=== PATIENT | female | born 1975 | race Caucasian/White ===

== ENCOUNTER → 2016-07-26 | Outpatient (CLI) | payer OTHER | LOC: KOH-I 12:27 | DX: M84.475A Pathological fracture, left foot, initial encounter for fracture (principal) | CPT/HCPCS: 73718 ==

== ENCOUNTER → 2016-08-09 | Outpatient (CLI) | payer OTHER | LOC: HEART CORB 07-26 14:00 | DX: R07.9 Chest pain, unspecified (principal); I10 Essential (primary) hypertension | CPT/HCPCS: 78452; 93306; A9502; J2785 ==